=== PATIENT | female | born 1985 | race Caucasian/White ===

== ENCOUNTER 2016-08-16 07:36 | Emergency (ER) | payer OTHER ==
--- NOTE | 2016-08-16 07:56 | UC ---
Complaint Female HPI - HPI Summary HPI Summary: left flank pain x 1 week. Hx kidney stones, one prior, approx 3 years ago, needed stent and laser to , done in [place]. No fam hx kidney stones or renal failure. No fever. no gross hematuria, no dysuria. Pt is nursing her 6 month old son, can't lift him due to pain. Took a vicodin at 0630am with no relief. - History Of Current Complaint Chief Complaint: UCGU Stated Complaint: BACK PAIN Time Seen by Provider: 08/16/16 07:55 Hx Obtained From: Patient Hx Last Menstrual Period: 04/2015 ?: No Onset/Duration: Gradual Onset, Lasting Weeks - 1, Still Present, Worse Since - since this am. Severity Initially: Moderate Severity Currently: Severe Pain Intensity: 6 Pain Scale Used: 0-10 Numeric Character: Sharp Aggravating Factor(s): Nothing Alleviating Factor(s): Nothing Associated Signs And Symptoms: Positive: Back Pain, Nausea. Negative: Fever, Vaginal Bleeding/Discharge, Vaginal Discharge, Vomiting(# Of Episodes =) Related Hx: Similar Episode/Dx as: - kidney stones, - 9, Para - 5 - Risk Factors Ectopic Risk Factor: Negative Ovarian Torsion Risk Factor: Negative - Allergies/Home Medications Allergies/Adverse Reactions: Allergies Allergy/AdvReac Type Severity Reaction Status Date / Time No Known Allergies Allergy Verified 08/16/16 07:49 Home Medications: Home Medications Hydrocodone/APAP 5/300 (NF) [Vicodin 5 MG/300 MG(NF)] 1 tab PO ONCE PRN [History Confirmed 08/16/16] PMH/Surg Hx/FS Hx/Imm Hx Previously Healthy: Yes - Surgical History Surgical History: Yes Surgery Procedure, Year, and Place: left kidney stent - Family History Known Family History: Negative: Renal Disease - Social History Occupation: Employed Full-time - at [employer] Alcohol Use: None Substance Use Type: None Smoking Status (MU): Light Every Day Tobacco Smoker Review of Systems Constitutional: Negative Respiratory: Negative Cardiovascular: Negative Gastrointestinal: Other - nausea Genitourinary: Other - left flank pain Motor: Negative Neurovascular: Negative Musculoskeletal: Negative Neurological: Negative Psychological: Negative All Other Systems Reviewed And Are Negative: Yes Physical Exam Triage Information Reviewed: Yes Appearance: Well-Nourished, Ill-Appearing, Pain Distress Vital Signs: Initial Vital Signs Temp 99.1 F 08/16/16 07:41 Pulse 108 08/16/16 07:41 Resp 28 08/16/16 07:41 BP 156/66 08/16/16 07:41 elevated BP, tachycardia noted Vital Signs Reviewed: Yes Eyes: Positive: Conjunctiva Clear ENT: Positive: Normal ENT inspection, Hearing grossly normal. Negative: Muffled /hoarse voice Neck: Positive: Supple, Nontender Respiratory: Positive: Lungs clear, Normal breath sounds, No respiratory distress Cardiovascular: Positive: RRR, No Murmur, Pulses Normal, Brisk Capillary Refill Abdomen Description: Positive: Nontender, No Organomegaly, Soft Bowel Sounds: Positive: Present Musculoskeletal: Positive: Strength Intact, ROM Intact Neurological Exam: Normal Psychological Exam: Normal Skin Exam: Normal Complaint Female Dx - Course Course Of Treatment: pt vomited undigested food in UC while awaiting CT results. Declines ondansetron because she doesn't like to take medication because she is nursing. Also states she feels better. No abd pain. - Differential Dx/Diagnosis Differential Diagnosis/HQI/PQRI: Renal Colic, Ureteral Stone, Urinary Tract Infection Provider Diagnoses: 1) left flank pain. 2) elevated BP without dx HTN. 3) hematuria Discharge - Discharge Plan Condition: Stable Disposition: HOME Prescriptions: HYDROcodone/ACETAMIN 5-325 MG* [[place] 5-325 TAB*] 1 tab PO Q4H PRN #6 tab MDD 4 PRN Reason: Pain Patient Education Materials: Kidney Stones (ED), Hematuria (ED), Flank Pain (ED ) Referrals: Betsey Kauffman MD [Primary Care Provider] - Stiven Young MD [Medical Doctor] - 7 Days (follow up to get established due to blood in your urine and kidney stones bilateral ) Additional Instructions: Your blood pressure was elevated today. This is likely due to pain, however you need definite follow up with Dr. Kauffman regarding this, within a month. You also had microscopic blood in your urine and white blood cells in your urine. This could be due to infection, although you have no urinary symptoms. We have sent a urine culture. We will notify you if you need further care based on this culture. If the culture is negative you will need definite follow up with the urologist for the cause of the blood in the urine. It is likely due to the stones which are still present up in your kidney, which also needs urology follow up. Return to urgent care or go to the emergency room if you have any new or worsening symptoms.
[2016-08-16] MEDS ORDERED: Ketorolac INJ* 30 MG/ML 1 ML VIAL IM ONE (08:10)
--- NOTE | 2016-08-16 08:58 | RAD ---
INDICATION: LEFT flank pain. History of kidney stones. Previous lithotripsy. COMPARISON: None. TECHNIQUE: Multidetector CT images were obtained from the lung bases to the ischial tuberosities. Evaluation of the viscera is limited without IV contrast. Multiplanar reformation. REPORT: Unremarkable visualized inferior thorax. Unremarkable unenhanced liver, gallbladder, pancreas, spleen. Negative for CT abnormality of the upper GI, small bowel, or retrocecal appendix. Mild diverticulosis of the sigmoid colon without findings of diverticulitis. Negative for ascites or free air. Small fat-containing umbilical hernia without inflammatory change. Normal adrenal glands. Small 1 -- 2 mm calyceal stones at the mid to upper pole of the RIGHT kidney and small 1 -- 2 mm stones at the mid to upper and lower pole calyces of the LEFT kidney. Negative for hydronephrosis. Negative for focal renal lesions or perinephric inflammatory stranding. Unremarkable nondilated ureters. Largely decompressed urinary bladder limiting assessment without gross abnormality. Unremarkable uterus and adnexal regions. Negative for lymphadenopathy. Unremarkable dominant retroperitoneal vasculature. Negative for suspicious osseous lesions. IMPRESSION: 1. Small bilateral calyceal stones without ureteral stone or hydronephrosis. 2. Normal appendix documented. 3. No acute abdominal pelvic pathologic process evident.
[2016-08-16 09:26] VITALS: BP 124/72
== END 2016-08-16 09:43 | disposition home or self-care (01) ==
LOC: UCCORT 07:36
DX: M54.9 Dorsalgia, unspecified (principal); R31.9 Hematuria, unspecified; N20.0 Calculus of kidney; Z87.442 Personal history of urinary calculi; Z32.02 Encounter for pregnancy test, result negative; R03.0 Elevated blood-pressure reading, without diagnosis of hypertension; R00.0 Tachycardia, unspecified; F17.210 Nicotine dependence, cigarettes, uncomplicated
CPT/HCPCS: 74176; 81003; 84702; 87086; 96372; 99202; G0463; J1885

== ENCOUNTER 2017-01-30 09:07 | Emergency (ER) | payer OTHER ==
[2017-01-30 09:19] VITALS: BP 121/73
--- NOTE | 2017-01-30 10:06 | UC ---
Throat Pain/Nasal Chucky HPI - HPI Summary HPI Summary: c/o head and chest congestion, productive cough with yellow green secretion that started 3-4 days ago. She is breast feeding at this time. Has had sinus pressure in the frontal sinuses. [ End ] - History of Current Complaint Chief Complaint: UCRespiratory Stated Complaint: COUGH SINUS PRESSURE Time Seen by Provider: 01/30/17 10:03 Hx Obtained From: Patient Hx Last Menstrual Period: 01/26/17 Onset/Duration: Gradual Onset Cough: Productive Associated Signs & Symptoms: Positive: Sinus Discomfort, Nasal Discharge - Allergies/Home Medications Allergies/Adverse Reactions: Allergies Allergy/AdvReac Type Severity Reaction Status Date / Time No Known Allergies Allergy Verified 01/30/17 09:15 PMH/Surg Hx/FS Hx/Imm Hx Previously Healthy: Yes - Surgical History Surgical History: Yes Surgery Procedure, Year, and Place: left kidney stent. c- section - Family History Known Family History: Negative: Renal Disease - Social History Occupation: Employed Full-time Lives: With Family Alcohol Use: None Substance Use Type: None Smoking Status (MU): Heavy Every Day Tobacco Smoker Type: Cigarettes Amount Used/How Often: 1/2 pack daily Cessation Counseling: Patient Advised to Stop Review of Systems Constitutional: Fatigue ENT: Ear Ache, Nasal Discharge, Sinus Congestion, Sinus Pain/Tenderness Respiratory: Cough All Other Systems Reviewed And Are Negative: Yes Physical Exam Triage Information Reviewed: Yes Appearance: Well-Appearing, No Pain Distress, Well-Nourished Vital Signs: Initial Vital Signs Temp 98.1 F 01/30/17 09:15 Pulse 96 01/30/17 09:15 Resp 18 01/30/17 09:15 BP 121/73 01/30/17 09:15 Pulse Ox 98 01/30/17 09:15 Vital Signs Reviewed: Yes Eye Exam: Normal ENT Exam: Normal ENT: Positive: Nasal congestion, TM dull, Other: - sinus tenderness to palpation frontal sinus Dental Exam: Normal Neck exam: Normal Neck: Positive: Supple, Nontender Respiratory Exam: Normal Respiratory: Positive: Chest non-tender, Lungs clear, Normal breath sounds Cardiovascular Exam: Normal Musculoskeletal Exam: Normal Neurological Exam: Normal Psychological Exam: Normal Skin Exam: Normal Throat Pain/Nasal Course/Dx - Course Course Of Treatment: viral -- start netti pot, tea w/honey , consider antihistamines and if sx persist another few days and worsen then start amox at that time - Differential Dx/Diagnosis Differential Diagnosis/HQI/PQRI: Pharyngitis, Tonsillitis, URI Provider Diagnoses: sinusitis Discharge - Discharge Plan Condition: Good Disposition: HOME Prescriptions: Amoxicillin PO (*) [Amoxicillin 875 MG (*)] 875 mg PO BID #14 tab Patient Education Materials: Sinusitis (ED) Referrals: Betsey Kauffman MD [Primary Care Provider] - 4 Days Additional Instructions: AT THIS TIME YOU HAVE A VIRAL SINUSITIS BUT IF YOUR SYMPTOMS WORSEN OVER THE NEXT 2-3 DAYS THEN YOU MAY START THE ANTIBIOTIC AT THE PHARMACY .
== END 2017-01-30 10:34 | disposition home or self-care (01) ==
LOC: UCCORT 09:07
DX: J32.9 Chronic sinusitis, unspecified (principal); F17.210 Nicotine dependence, cigarettes, uncomplicated
CPT/HCPCS: 99212; G0463